=== PATIENT | female | born 1985 | race Caucasian/White ===

== ENCOUNTER 2018-03-21 19:58 | Emergency (ER) | payer OTHER ==
[~2018-03-21] VITALS: Ht 157.5 cm; Wt 144.2 kg
[~2018-03-21 19:58] MED LIST: Antivert25 MG PO; CITA20 PO; CYCL10 PO; Cipro250 MG PO; DULO30; GABA100 PO; HYDACE5 PO; LORA1 PO; LORA2 PO; MECL25 PO; METCAR500 PO; NAPR550 PO; Norco 5-325 Ta1 EACH PO; PARO20 PO; Percocet 5-3251 EACH PO; RXLORA1 PO
[2018-03-21] MEDS ORDERED: VENL37.5ER PO (20:38)
[2018-03-21] MEDS ORDERED: Ativan1 MG PO (21:24)
== END 2018-03-21 21:38 | disposition home or self-care (01) ==
LOC: ER 19:58
DX: F41.9 Anxiety disorder, unspecified (principal); F32.9 Major depressive disorder, single episode, unspecified; Z88.2 Allergy status to sulfonamides; Z88.8 Allergy status to other drugs, medicaments and biological substances; Z79.899 Other long term (current) drug therapy
CPT/HCPCS: 99283

== ENCOUNTER 2019-03-23 09:53 | Emergency (ER) | payer OTHER ==
[~2019-03-23] VITALS: Ht 157.5 cm; Wt 140.6 kg
[~2019-03-23 09:53] MED LIST changes: +Ativan0.5 MG PO; +Ativan1 MG PO; +BUSP15 PO; +DULO30 PO; +ERGO400 PO; +TURMERIC500 M2 PO; +VENL37.5ER PO; +VENL75ER PO; +Vistaril25 MG PO
[2019-03-23 10:31] LABS: BASOPHILS ABSOLUTE AUTO 0.07 K/mm3 (0.00-0.23); BASOPHILS PERCENT AUTO 1 % (0-2); EOSINOPHILS ABSOLUTE AUTO 0.43 K/mm3 (0.00-0.68); EOSINOPHILS PERCENT AUTO 4 % (0-6); Hematocrit 48.3 % (33.0-51.0); Hemoglobin 15.6 g/dL (11.5-16.0); IMMATURE GRAN ABSOLUTE AUTO 0.03 K/mm3 (0.00-0.10); IMMATURE GRAN PERCENT AUTO 0 % (0-1); LYMPHOCYTES ABSOLUTE AUTO 2.23 K/mm3 (0.84-5.20); LYMPHOCYTES PERCENT AUTO 20 % (21-46); MONOCYTES ABSOLUTE AUTO 0.84 K/mm3 (0.16-1.47); MONOCYTES PERCENT AUTO 8 % (4-13); Mean Corpuscular HGB 29.5 pg (26.0-34.0); Mean Corpuscular HGB Conc 32.3 g/dL (31.5-36.5); Mean Corpuscular Volume 92 fL (80-100); Mean Platelet Volume 9.4 fL (9.1-12.4); NEUTROPHILS ABSOLUTE AUTO 7.43 K/mm3 (1.96-9.15); NEUTROPHILS PERCENT AUTO 67 % (41-73); Platelet Count 409 K/mm3 (150-400); RDW Coefficient Variation 13.2 % (11.7-14.2); RDW Standard Deviation 45.1 fL (35.1-46.3); Red Blood Cell Count 5.28 M/mm3 (3.80-5.20); White Blood Cell Count 11.03 K/mm3 (4.00-11.30)
[2019-03-23 10:55] LABS: Alanine Aminotransfer (ALT/SGP 36 U/L (12-78); Albumin, Blood 3.7 g/dL (3.4-5.0); Albumin/Globulin Ratio 0.9 (0.8-1.8); Alk Phos 126 U/L (50-136); Anion Gap 7 mmol/L (6-16); Aspartate Aminotrans (AST/SGOT 21 U/L (12-37); Bilirubin, Total 0.8 mg/dL (0.1-1.0); Blood Urea Nitrogen 10 mg/dL (8-24); Bun/Creatinine Ratio 13.2 (12.0-20.0); CO2, Blood 21 mmol/L (21-32); Calcium, Blood 8.7 mg/dL (8.5-10.1); Chloride, Blood 109 mmol/L (98-108); Creatinine, Blood 0.76 mg/dL (0.40-1.00); Globulin, Blood 4.3 g/dL (2.2-4.0); Glomerular Filtration Rate >60 (60-); Glucose, Blood 103 mg/dL (70-99); Potassium, Blood 3.4 mmol/L (3.5-5.5); Salicylate <1.7 mg/dL (2.8-20.0); Sodium, Blood 137 mmol/L (136-145)
[2019-03-23 11:05] LABS: Ethanol (Alcohol), Blood, Med <3 mg/dL; Thyroxine (T4) 10.2 ug/dL (4.8-13.9)
[2019-03-23 11:06] LABS: Acetaminophen, Random <2.0 ug/mL (10.0-30.0)
[2019-03-23] MEDS ORDERED: Halcion0.25 MG PO (11:25)
[2019-03-23] MEDS ORDERED: Ativan1 MG PO (11:25)
== END 2019-03-23 11:49 | disposition home or self-care (01) ==
LOC: ER 09:53
PROVIDERS: Emergency Medicine
DX: F32.9 Major depressive disorder, single episode, unspecified (principal); F41.9 Anxiety disorder, unspecified; G47.00 Insomnia, unspecified; Z88.2 Allergy status to sulfonamides; Z88.8 Allergy status to other drugs, medicaments and biological substances; Z79.899 Other long term (current) drug therapy; G43.909 Migraine, unspecified, not intractable, without status migrainosus
CPT/HCPCS: 36415; 80053; 84436; 84443; 85025; 99283; G0480

== ENCOUNTER → 2019-09-17 | Outpatient (CLI) | payer OTHER ==
[~2019-09-17] MED LIST changes: +Halcion0.25 MG PO
[2019-09-17 19:18] LABS: U Amphetamine Screen Not Detected; U Barbituate Screen Not Detected; U Benzodiazapine Screen Not Detected; U Buprenorphine Screen Not Detected; U Cannabinoids Screen Not Detected; U Cocaine Screen Not Detected; U Methadone Screen Not Detected; U Methamphetamine Screen Not Detected; U Opiates Screen Not Detected; U Oxycodone Screen Not Detected; U Phencyclidine Screen DETECTED
[2019-09-17 19:19] LABS: U Propoxyphene Screen Not Detected
== END ==
LOC: LAB SHORT 17:15 → LAB 17:15
PROVIDERS: Registered Nurse
DX: Z51.81 Encounter for therapeutic drug level monitoring (principal); Z79.899 Other long term (current) drug therapy
CPT/HCPCS: G0480

== ENCOUNTER → 2020-02-15 | Outpatient (CLI) | payer OTHER ==
[2020-02-15 20:35] LABS: Percent Saturation 23.3 % (15.0-50.0)
== END | disposition home or self-care (01) ==
LOC: LAB 17:55 → LAB SHORT 17:55
PROVIDERS: Internal Medicine Hematology & Oncology
DX: D51.8 Other vitamin B12 deficiency anemias (principal); R53.83 Other fatigue; Z86.2 Personal history of diseases of the blood and blood-forming organs and certain disorders involving the immune mechanism
CPT/HCPCS: 82607; 82746; 83540; 83550

== ENCOUNTER 2023-03-04 12:03 | Emergency (ER) | payer OTHER ==
[~2023-03-04] VITALS: Ht 157.5 cm; Wt 163.3 kg
[~2023-03-04 12:03] MED LIST changes: +BUSP5 PO; +EFFEXOR XR150 MG PO; +ENSKYCE 28 TAB1 EACH; +FLUO10 PO
[2023-03-04 12:30] VITALS: BP 155/100
== END 2023-03-04 14:14 | disposition home or self-care (01) ==
LOC: ER 12:03
DX: M79.652 Pain in left thigh (principal); M25.562 Pain in left knee; F32.A Depression, unspecified; Z79.899 Other long term (current) drug therapy; Z88.2 Allergy status to sulfonamides; Z88.1 Allergy status to other antibiotic agents; Z88.8 Allergy status to other drugs, medicaments and biological substances
CPT/HCPCS: 93971; 99283-25

== ENCOUNTER 2023-05-01 17:05 | Emergency (ER) | payer SELFPAY ==
[~2023-05-01] VITALS: Ht 157.5 cm; Wt 145.2 kg
[~2023-05-01 17:05] MED LIST changes: +HUMALOG KW100 UNIT/1 SC; +LISI20 PO; +METF500 PO; +SEMGLEE (Y100 UNIT/2 SC
[2023-05-01 18:38] LABS: BASOPHILS PERCENT AUTO 1 % (0-2); EOSINOPHILS ABSOLUTE AUTO 0.24 K/mm3 (0.00-0.68); EOSINOPHILS PERCENT AUTO 3 % (0-6); Hematocrit 43.7 % (33.0-51.0); Hemoglobin 15.2 g/dL (11.5-16.0); IMMATURE GRAN ABSOLUTE AUTO 0.06 K/mm3 (0.00-0.10); IMMATURE GRAN PERCENT AUTO 1 % (0-1); LYMPHOCYTES ABSOLUTE AUTO 2.33 K/mm3 (0.84-5.20); LYMPHOCYTES PERCENT AUTO 31 % (21-46); MONOCYTES ABSOLUTE AUTO 0.93 K/mm3 (0.16-1.47); MONOCYTES PERCENT AUTO 13 % (4-13); Mean Corpuscular HGB 29.5 pg (26.0-34.0); Mean Corpuscular HGB Conc 34.8 g/dL (31.5-36.5); Mean Corpuscular Volume 85 fL (80-100); NEUTROPHILS PERCENT AUTO 51 % (41-73); Platelet Count 299 K/mm3 (150-400); RDW Coefficient Variation 19.1 % (11.7-14.2); RDW Standard Deviation 57.8 fL (35.1-46.3); Red Blood Cell Count 5.15 M/mm3 (3.80-5.20); White Blood Cell Count 7.46 K/mm3 (4.00-11.30)
[2023-05-01 19:19] LABS: Albumin, Blood 3.1 g/dL (3.4-5.0); Albumin/Globulin Ratio 0.7 (0.8-1.8); Bilirubin, Total 9.4 mg/dL (0.1-1.0); Bun/Creatinine Ratio 9.2 (12.0-20.0); Calcium, Blood 9.1 mg/dL (8.5-10.1); Creatinine, Blood 0.76 mg/dL (0.40-1.00); Globulin, Blood 4.4 g/dL (2.2-4.0); Magnesium, Blood 2.2 mg/dL (1.6-2.4); Potassium, Blood 3.8 mmol/L (3.5-5.5); Total Protein, Blood 7.5 g/dL (6.4-8.2)
[2023-05-01 19:20] LABS: Beta HCG, Quantitative, Serum <1 mIU/mL (0-3)
[2023-05-01 19:22] LABS: Phosphorus, Blood 1.9 mg/dL (2.5-4.9)
[2023-05-01 19:54] LABS: Source, Urine Clean Catch
[2023-05-01 19:58] LABS: Appearance, Urine Hazy (Clear); Blood, Urine 1+ (Neg); Glucose Qualitative, Urine Neg (Neg); Ketones, Urine 1+ (Neg); Leukocyte Esterase, Urine 1+ (Neg); Nitrite, Urine Pos (Neg); Protein, Urine 3+ (Neg); Specific Gravity, Urine 1.025 (1.003-1.022); Urobilinogen, Urine 3+ (Normal)
[2023-05-01 20:04] LABS: Bilirubin, Urine 3+ (Neg); Color, Urine Orange (P-Yellow)
[2023-05-01 20:07] LABS: Bacteria Many /hpf; Calcium Oxalate Crystals Few /hpf; Red Blood Cells, Urine 0-2 /hpf (0-2); Squamous Epithelial Cells Few /hpf (Few)
[2023-05-01 21:30] VITALS: BP 114/68
[2023-05-01] MEDS ORDERED: CEPH500 PO (21:45)
== END 2023-05-01 21:43 | disposition home or self-care (01) ==
LOC: ER 17:05
PROVIDERS: Emergency Medicine; Physician Assistant
DX: R17 Unspecified jaundice (principal); Z88.2 Allergy status to sulfonamides; Z88.1 Allergy status to other antibiotic agents; Z88.8 Allergy status to other drugs, medicaments and biological substances; Z79.899 Other long term (current) drug therapy; Z79.4 Long term (current) use of insulin; Z79.84 Long term (current) use of oral hypoglycemic drugs; G43.909 Migraine, unspecified, not intractable, without status migrainosus
CPT/HCPCS: 76705; 80053; 81001; 83690; 83735; 84100; 84443; 84702; 85025; 87086; 96360; 99285-25; A9270; J7030

== ENCOUNTER → 2023-09-11 | Outpatient (CLI) | payer OTHER ==
[~2023-09-11] MED LIST changes: +CEPH500 PO
== END ==
LOC: LAB SHORT 09:50
DX: E83.01 Wilson's disease (principal)
CPT/HCPCS: 81050

== ENCOUNTER → 2023-10-06 | Outpatient (CLI) | payer OTHER | LOC: LAB SHORT 12:52 → LAB 12:52 → LAB SHORT 15:24 | PROVIDERS: Internal Medicine Hematology & Oncology | DX: E83.01 Wilson's disease (principal) | CPT/HCPCS: 81050; 82525 ==

== ENCOUNTER 2024-03-25 18:01 | Emergency (ER) | payer OTHER ==
[~2024-03-25] VITALS: Ht 157.5 cm; Wt 145.2 kg
[2024-03-25 19:15] LABS: BASOPHILS ABSOLUTE AUTO 0.11 K/mm3 (0.00-0.23); BASOPHILS PERCENT AUTO 1 % (0-2); EOSINOPHILS ABSOLUTE AUTO 0.77 K/mm3 (0.00-0.68); EOSINOPHILS PERCENT AUTO 7 % (0-6); Hematocrit 48.9 % (33.0-51.0); IMMATURE GRAN ABSOLUTE AUTO 0.05 K/mm3 (0.00-0.10); IMMATURE GRAN PERCENT AUTO 0 % (0-1); LYMPHOCYTES ABSOLUTE AUTO 3.32 K/mm3 (0.84-5.20); LYMPHOCYTES PERCENT AUTO 28 % (21-46); MONOCYTES ABSOLUTE AUTO 0.88 K/mm3 (0.16-1.47); MONOCYTES PERCENT AUTO 7 % (4-13); Mean Corpuscular HGB 30.7 pg (26.0-34.0); Mean Corpuscular HGB Conc 32.7 g/dL (31.5-36.5); Mean Corpuscular Volume 94 fL (80-100); Mean Platelet Volume 11.3 fL (9.1-12.4); NEUTROPHILS ABSOLUTE AUTO 6.71 K/mm3 (1.96-9.15); NEUTROPHILS PERCENT AUTO 57 % (41-73); Platelet Count 366 K/mm3 (150-400); RDW Coefficient Variation 15.1 % (11.7-14.2); RDW Standard Deviation 52.5 fL (35.1-46.3); Red Blood Cell Count 5.22 M/mm3 (3.80-5.20); White Blood Cell Count 11.84 K/mm3 (4.00-11.30)
[2024-03-25 19:16] LABS: Albumin, Blood 2.8 g/dL (3.4-5.0); Albumin/Globulin Ratio 0.5 (0.8-1.8); Bilirubin, Total 1.7 mg/dL (0.1-1.0); Bun/Creatinine Ratio 14.8 (12.0-20.0); Calcium, Blood 8.3 mg/dL (8.5-10.1); Creatinine, Blood 0.54 mg/dL (0.40-1.00); Globulin, Blood 6.1 g/dL (2.2-4.0); Potassium, Blood 4.2 mmol/L (3.5-5.5); Total Protein, Blood 8.9 g/dL (6.4-8.2)
[2024-03-25] MEDS ORDERED: NS 1,000 ML IV SCH (21:10)
[2024-03-25] MEDS ORDERED: ONDA4ODT MM (23:24)
[2024-03-25] MEDS ORDERED: RX Prepack 2 Tabs Ondansetron ODT 4MG UD ONE (23:25)
[2024-03-26 00:20] VITALS: BP 138/90
== END 2024-03-26 00:26 | disposition home or self-care (01) ==
LOC: ER 18:01
PROVIDERS: Physician Assistant
DX: R10.84 Generalized abdominal pain (principal); R74.01 Elevation of levels of liver transaminase levels; E80.7 Disorder of bilirubin metabolism, unspecified; R11.2 Nausea with vomiting, unspecified; Z88.2 Allergy status to sulfonamides; Z88.8 Allergy status to other drugs, medicaments and biological substances; Z88.1 Allergy status to other antibiotic agents; Z79.899 Other long term (current) drug therapy; Z79.84 Long term (current) use of oral hypoglycemic drugs; Z79.4 Long term (current) use of insulin; G43.909 Migraine, unspecified, not intractable, without status migrainosus
CPT/HCPCS: 76705; 80053; 83690; 84703; 85025; 96360; 99284-25; A9270; J7030

== ENCOUNTER 2024-06-28 13:08 | Emergency (ER) | payer OTHER ==
[~2024-06-28] VITALS: Ht 157.5 cm; Wt 147.4 kg
[~2024-06-28 13:08] MED LIST changes: +ONDA4ODT MM
[2024-06-28 13:48] VITALS: BP 172/111
[2024-06-28 14:24] LABS: BASOPHILS ABSOLUTE AUTO 0.08 K/mm3 (0.00-0.23); BASOPHILS PERCENT AUTO 1 % (0-2); EOSINOPHILS ABSOLUTE AUTO 0.12 K/mm3 (0.00-0.68); EOSINOPHILS PERCENT AUTO 1 % (0-6); Hematocrit 41.8 % (33.0-51.0); Hemoglobin 14.1 g/dL (11.5-16.0); IMMATURE GRAN ABSOLUTE AUTO 0.29 K/mm3 (0.00-0.10); IMMATURE GRAN PERCENT AUTO 2 % (0-1); LYMPHOCYTES ABSOLUTE AUTO 1.84 K/mm3 (0.84-5.20); LYMPHOCYTES PERCENT AUTO 12 % (21-46); MONOCYTES ABSOLUTE AUTO 0.78 K/mm3 (0.16-1.47); MONOCYTES PERCENT AUTO 5 % (4-13); Mean Corpuscular HGB 32.9 pg (26.0-34.0); Mean Corpuscular HGB Conc 33.7 g/dL (31.5-36.5); Mean Corpuscular Volume 97 fL (80-100); Mean Platelet Volume 9.9 fL (9.1-12.4); NEUTROPHILS ABSOLUTE AUTO 12.88 K/mm3 (1.96-9.15); NEUTROPHILS PERCENT AUTO 81 % (41-73); Platelet Count 247 K/mm3 (150-400); RDW Coefficient Variation 16.5 % (11.7-14.2); RDW Standard Deviation 58.9 fL (35.1-46.3); Red Blood Cell Count 4.29 M/mm3 (3.80-5.20); White Blood Cell Count 15.99 K/mm3 (4.00-11.30)
[2024-06-28 14:48] LABS: Alanine Aminotransfer (ALT/SGP 142 U/L (12-78); Albumin, Blood 2.5 g/dL (3.4-5.0); Albumin/Globulin Ratio 0.6 (0.8-1.8); Alk Phos 249 U/L (50-136); Anion Gap 10 mmol/L (3-11); Aspartate Aminotrans (AST/SGOT 119 U/L (12-37); Beta HCG, Quantitative, Serum <1 mIU/mL (0-3); Bilirubin, Total 3.4 mg/dL (0.1-1.0); Blood Urea Nitrogen 16 mg/dL (8-24); Bun/Creatinine Ratio 22.2 (12.0-20.0); CO2, Blood 22 mmol/L (21-32); Calcium, Blood 8.3 mg/dL (8.5-10.1); Chloride, Blood 114 mmol/L (98-108); Creatinine, Blood 0.72 mg/dL (0.40-1.00); Glomerular Filtration Rate 110 (60-); Glucose, Blood 116 mg/dL (70-99); Potassium, Blood 3.6 mmol/L (3.5-5.5); Sodium, Blood 142 mmol/L (136-145); Total Protein, Blood 6.5 g/dL (6.4-8.2)
[2024-06-28 15:08] LABS: International Normalized Ratio 1.01; Prothrombin Time Results 10.8 Sec (9.7-11.5)
== END 2024-06-28 17:33 | disposition home or self-care (01) ==
LOC: ER 13:08
PROVIDERS: Emergency Medicine
DX: R74.8 Abnormal levels of other serum enzymes (principal); R79.89 Other specified abnormal findings of blood chemistry; G43.909 Migraine, unspecified, not intractable, without status migrainosus; Z88.2 Allergy status to sulfonamides; Z88.6 Allergy status to analgesic agent; Z88.1 Allergy status to other antibiotic agents; Z88.8 Allergy status to other drugs, medicaments and biological substances; Z79.4 Long term (current) use of insulin; Z79.84 Long term (current) use of oral hypoglycemic drugs; Z79.899 Other long term (current) drug therapy; Z87.19 Personal history of other diseases of the digestive system
CPT/HCPCS: 36415; 80053; 82105; 84702; 85025; 85610; 99283

== ENCOUNTER 2024-07-28 04:48 | Observation (INO) | payer OTHER ==
[~2024-07-28] VITALS: Ht 157.5 cm; Wt 148.3 kg
[~2024-07-28 04:48] MED LIST changes: -EFFEXOR XR150 MG PO; -LISI20 PO; +Prinivil10 MG PO
[2024-07-28 05:34] LABS: Hematocrit 45.6 % (33.0-51.0); Hemoglobin 15.2 g/dL (11.5-16.0); Mean Corpuscular HGB 33.3 pg (26.0-34.0); Mean Corpuscular HGB Conc 33.3 g/dL (31.5-36.5); Mean Corpuscular Volume 100 fL (80-100); Mean Platelet Volume 9.9 fL (9.1-12.4); Platelet Count 359 K/mm3 (150-400); RDW Coefficient Variation 13.9 % (11.7-14.2); RDW Standard Deviation 51.2 fL (35.1-46.3); Red Blood Cell Count 4.56 M/mm3 (3.80-5.20); White Blood Cell Count 17.23 K/mm3 (4.00-11.30)
[2024-07-28 05:56] LABS: Albumin, Blood 2.5 g/dL (3.4-5.0); Albumin/Globulin Ratio 0.5 (0.8-1.8); Bilirubin, Total 1.1 mg/dL (0.1-1.0); Bun/Creatinine Ratio 24.7 (12.0-20.0); Calcium, Blood 8.7 mg/dL (8.5-10.1); Creatinine, Blood 0.61 mg/dL (0.40-1.00); Globulin, Blood 4.6 g/dL (2.2-4.0); Potassium, Blood 4.7 mmol/L (3.5-5.5); Total Protein, Blood 7.1 g/dL (6.4-8.2)
[2024-07-28] MEDS ORDERED: Morphine Sulfate 4 MG/1 ML Injection IV ONE (06:40)
[2024-07-28] MEDS ORDERED: Ondansetron HCl 2 MG / ML 2ML Vial IV ONE (06:40)
[2024-07-28] MEDS ORDERED: Metoprolol Tartrate 1 MG/ML 5 ML VIAL IV ONE (06:45)
[2024-07-28] MEDS ORDERED: Nitroglycerin 0.4 MG SUBL SL PRN (06:45)
[2024-07-28 07:21] LABS: International Normalized Ratio 0.96; Prothrombin Time Results 10.3 Sec (9.7-11.5)
[2024-07-28 07:34] LABS: BAND PERCENT MAN 1 % (0-8); BASOPHILS PERCENT MAN 0 % (0-2); EOSINOPHILS ABSOLUTE MAN 0.86 K/mm3 (0.00-0.68); EOSINOPHILS PERCENT MAN 5 % (0-6); LYMPHOCYTES % ATYPICAL MANUAL 2 % (0-0); LYMPHOCYTES ABSOLUTE MAN 5.16 K/mm3 (0.84-5.20); LYMPHOCYTES PERCENT MAN 28 % (21-46); MONOCYTES ABSOLUTE MAN 1.03 K/mm3 (0.16-1.47); MONOCYTES PERCENT MAN 6 % (4-13); MYELOCYTE ABSOLUTE MAN 0.34 K/mm3 (0.00-0.00); MYELOCYTE PERCENT MAN 2 % (0-0); NEUTROPHILS ABSOLUTE MAN 9.82 K/mm3 (1.96-9.15); SEG NEUTROPHILS PERCENT MAN 56 % (41-73); TOTAL CELLS COUNTED 100
[2024-07-28] MEDS ORDERED: Aspirin 325 MG Tab PO ONE (07:35)
[2024-07-28] MEDS ORDERED: HYDROmorphone HCl/Pf 1MG SYR IV ONE ×2 (07:50→09:50)
[2024-07-28 08:04] LABS: C-REACTIVE PROTEIN, EXT RANGE 7.45 mg/dL (0.000-0.300); Thyroid Stimulating Hormone 4.9 uIU/mL (0.360-4.800); Thyroxine (T4) 12.1 ug/dL (4.8-13.9)
[2024-07-28] MEDS ORDERED: Calcium Carbonate 500 MG Tab Chew PO PRN (08:40)
[2024-07-28] MEDS ORDERED: FLU VACC TS2024-25(6MOS UP)/PF 45 MCG/0.5 ML SYRINGE IM SCH (08:40)
[2024-07-28] MEDS ORDERED: Pantoprazole Sodium 40 MG Injection IV SCH (09:00)
[2024-07-28] MEDS ORDERED: Enoxaparin 40 MG/0.4 ML SYR SC SCH (09:00)
[2024-07-28] MEDS ORDERED: Lisinopril 20 MG Tab PO SCH (09:00)
[2024-07-28 09:06] LABS: CHOL/HDL RATIO 6.4; Cholesterol 255 mg/dL (50-200); HDL Cholesterol 40 mg/dL (>39); LDL/HDL RATIO 4.4; Low Density Lipoprotein Chol 178 mg/dL (0-110); Triglycerides 187 mg/dL (30-140); Very Low Density Lipoprot Chol 37 mg/dL (6-28)
[2024-07-28 11:01] LABS: Influenza A, PCR NEGATIVE (NEGATIVE); Influenza B, PCR NEGATIVE (NEGATIVE); Resp Syncytial Virus, PCR NEGATIVE (NEGATIVE); SARS-Cov-2 (COVID-19) PCR, MMC NEGATIVE (NEGATIVE)
[2024-07-28] MEDS ORDERED: Insulin Human Lispro 100 Units/ML 3ML Syringe SC SCH (11:30)
[2024-07-28] MEDS ORDERED: AZAT50 PO (12:38)
[2024-07-28] MEDS ORDERED: PRED5 PO (12:40)
[2024-07-28] MEDS ORDERED: PANT20 PO (12:42)
[2024-07-28 13:05] VITALS: BP 144/92
--- NOTE | 2024-07-28 13:20 | NUR ---
NURSING PCU DAYSHIFT: Assumed care of pt at approx 1245. Arrived from ER via gurney accompanied by RN and spouse, xfer w/SBA to unit bed, general weakness noted. Extremely pleasant and cooperative w/care. Skin intact w/o breakdown. Tele in place, ST w/HR 100-110, SBP 144 upon arrival, C/O 8/10 ACW/midsternal discomfort, treating w/positioning and meds as ordered, trace BLE edema. L/S cta t/o, O2 sat 99% on RA, denies dyspnea, occ dry/[employer] cough. Abd SNT, BT+, minimal appetite, voiding w/o difficulty per pt. PIV x2, s/l. Pt sitting up in bed and appears uncomfortable d/t chest discomfort. Assisted w/bed positioning, administer TUMS per pt request. Pt and spouse deny any current needs/questions regarding plan of care. Call light in reach, cont to monitor for any changes.
[2024-07-28] MEDS ORDERED: TraMADol HCl 50 MG Tab PO PRN (13:30)
[2024-07-28] MEDS ORDERED: Ondansetron 4 MG SoluTab MM PRN (13:30)
[2024-07-28] MEDS ORDERED: LORazepam 2 MG Tab PO PRN (13:30)
[2024-07-28 16:25] VITALS: BP 125/78
--- NOTE | 2024-07-28 17:40 | NUR ---
NURSING PCU DAYSHIFT SUMMARY: Pt continues to experience 7-8/10 ACW pain. Tx w/TUMS and tramadol as ordered w/no improvement. PMD notified and discussed care plan with fitness and wellness director, new d/o received for ASA and IV pain medication. Pt denies any other needs at this time. Continues to rest in room w/lights low. Call light in reach, cont to monitor until rpt is given to NOC RN.
[2024-07-28] MEDS ORDERED: FentaNYL Citrate 50 MCG/ML 2 ML Injection IV PRN (17:45)
[2024-07-28] MEDS ORDERED: Aspirin 325 MG Tab PO SCH ×2 (18:00)
[2024-07-28 21:00] VITALS: BP 122/72
[2024-07-28] MEDS ORDERED: Sennosides 8.6 MG Tab PO SCH (21:00)
--- NOTE | 2024-07-28 22:30 | NUR ---
ASSUMPTION OF CARE ASSUMED CARE AT APPROXIMATELY 1915. PT RESTING COMFORTABLY IN BED WITH PAIN CONTROLLED VIA FENTANYL. PT STATED PAIN IS ONLY FELT WITH DEEP BREATHS. PT AOX4 WITH NO OTHER COMPLAINTS. WILL CONTINUE PLAN OF CARE.
[2024-07-28 23:47] VITALS: BP 105/67
[2024-07-29 03:49] LABS: Hematocrit 46.7 % (33.0-51.0); Hemoglobin 15.4 g/dL (11.5-16.0); Mean Corpuscular HGB 33.3 pg (26.0-34.0); Mean Corpuscular Volume 101 fL (80-100); Mean Platelet Volume 9.7 fL (9.1-12.4); Platelet Count 366 K/mm3 (150-400); RDW Coefficient Variation 14.1 % (11.7-14.2); RDW Standard Deviation 53.1 fL (35.1-46.3); Red Blood Cell Count 4.63 M/mm3 (3.80-5.20); White Blood Cell Count 16.82 K/mm3 (4.00-11.30)
[2024-07-29 03:50] VITALS: BP 130/75
[2024-07-29 04:20] LABS: Albumin, Blood 2.6 g/dL (3.4-5.0); Albumin/Globulin Ratio 0.6 (0.8-1.8); Bilirubin, Total 2.1 mg/dL (0.1-1.0); Bun/Creatinine Ratio 18.3 (12.0-20.0); Calcium, Blood 8.4 mg/dL (8.5-10.1); Creatinine, Blood 0.77 mg/dL (0.40-1.00); Globulin, Blood 4.6 g/dL (2.2-4.0); Potassium, Blood 3.9 mmol/L (3.5-5.5); Total Protein, Blood 7.2 g/dL (6.4-8.2)
--- NOTE | 2024-07-29 04:20 | NUR ---
SHIFT SUMMARY PT ABLE TO REST AND SLEEP MOST OF THE NIGHT. PT STATED PAIN STARTED TO CREEP BACK UP AT ABOUT 0400. PT ABLE TO TOLERATE PAIN WITHOUT MORE PAIN MEDS AT THIS TIME. PT HAS NO OTHER COMPLAINTS OR NEW ACUTE EVENTS. WILL CONTINUE PLAN OF CARE.
[2024-07-29 07:29] VITALS: BP 107/72
[2024-07-29] MEDS ORDERED: Insulin Glargine-Yfgn 100 Unit/mL 3 ML SYR SC SCH (09:00)
[2024-07-29] MEDS ORDERED: PredniSONE 5 MG Tab PO SCH (09:00)
[2024-07-29] MEDS ORDERED: Venlafaxine HCl 37.5 MG CapCR PO SCH (09:00)
[2024-07-29] MEDS ORDERED: AzaTHIOprine 50 MG Tab PO SCH (09:00)
[2024-07-29] MEDS ORDERED: Aspirin 325 MG Tab PO SCH (09:00)
--- NOTE | 2024-07-29 09:59 | NUR ---
am note this rn assumed care at 0700. vital signs stable. tele sinus tach 100s. patient is alert and oriented x4. neuro is intact. patient is able to make needs known and uses call light appropriately. denies pain or shortness of breath. reports off and on mild chest pain with deep breathing and educated on pericarditis and how this will cause this pain to come and explained the process of this. patient verbalized understanding. see shift assessment for further detials. md rivera in the room and discussed plan of care. plan for patient to be discharged today. patient agrees with this plan
[2024-07-29] MEDS ORDERED: TRAM50 PO (10:36)
--- NOTE | 2024-07-29 10:56 | NUR ---
discharge this rn went over discharg education with the patient and patients , follow up appointments and new medication. patient verbalized understanding. patient left with hard script in hand. patient left with all belongings and in no distress
== END 2024-07-29 10:57 | disposition home or self-care (01) ==
LOC: ER 04:48 → PCU 04:49
PROVIDERS: Emergency Medicine; ADMIT Internal Medicine
DX: R07.89 Other chest pain (principal); F41.1 Generalized anxiety disorder; F32.9 Major depressive disorder, single episode, unspecified; K74.60 Unspecified cirrhosis of liver; K75.4 Autoimmune hepatitis; E03.8 Other specified hypothyroidism; I10 Essential (primary) hypertension; E11.9 Type 2 diabetes mellitus without complications; E78.5 Hyperlipidemia, unspecified; G47.33 Obstructive sleep apnea (adult) (pediatric); Z88.2 Allergy status to sulfonamides; Z88.8 Allergy status to other drugs, medicaments and biological substances; Z79.4 Long term (current) use of insulin; Z79.899 Other long term (current) drug therapy
CPT/HCPCS: 0241U; 36415; 71046; 71260; 80053; 80061; 82947; 83036; 83690; 83880; 84436; 84439; 84443; 84484; 85025; 85027; 85379; 85610; 85651; 85730; 86140; 93005; 93010; 93306; 94762; 96372; 96374; 96375; 96376; 99285-25; A9270; G0378; J1171; J1650; J1815; J2270; J2405; J2470; J3010; J7500; J7512; Q9967